=== PATIENT | male | born 2000 | race Caucasian/White ===

== ENCOUNTER 2025-02-05 08:54 | Outpatient (CLI) | payer OTHER, SELFPAY | END 2025-02-05 08:55 | disposition home or self-care (01) | LOC: ANHAUDIO 08:55 | PROVIDERS: PCP Physician Assistant Medical; Visit Provider Otolaryngology Otolaryngology/Facial Plastic Surgery | DX: H69.90 Unspecified Eustachian tube disorder, unspecified ear (principal); H90.0 Conductive hearing loss, bilateral | CPT/HCPCS: 92557; 92567 ==